=== PATIENT | male | born 1935 | race Two or more races ===

== ENCOUNTER 2016-10-04 17:51 | Emergency (ER) | payer SELFPAY ==
[~2016-10-04] VITALS: Ht 182.9 cm; Wt 85.2 kg
[2016-10-04 18:15] VITALS: BP 87/63
[2016-10-04 19:15] LABS: HEMATOCRIT 35.1 % (38.0-50.0); MCH 27.5 PG (29.0-34.0); MCHC 32.8 G/DL (30.0-36.0); MEAN PLAT.VOLUME 10.6 uM^3 (9.0-12.4); PLATELET COUNT 228 K/uL (156-360); RBC DIS.WIDTH-CV 13.7 % (11.8-14.6); RBC DIS.WIDTH-SD 41.7 % (39-53); RED BLOOD COUNT 4.18 M/uL (4.00-5.50); WHITE BLOOD COUNT 7.1 K/uL (4.1-10.2)
[2016-10-04 19:19] LABS: CHLORIDE 106 mEq/L (99-109); POTASSIUM 5.5 mEq/L (3.7-5.4); SODIUM 136 mEq/L (136-147)
[2016-10-04 19:21] LABS: GLUCOSE 182 mg/dL (70-99)
[2016-10-04 19:22] LABS: ANION GAP 12 MEQ/L (2-14)
[2016-10-04 19:25] LABS: GFR ESTIMATE (CALCULATED) 21 mL/min/
[2016-10-04 19:26] LABS: UREA NITROGEN (BUN) 50 mg/dL (9-23)
== END 2016-10-04 19:25 | disposition left against medical advice (07) ==
LOC: EME 17:51
DX: R42 Dizziness and giddiness (principal); Z53.21 Procedure and treatment not carried out due to patient leaving prior to being seen by health care provider
CPT/HCPCS: 71020; 80048; 85027; 93005